=== PATIENT | male | born 1945 | race Caucasian/White ===

== ENCOUNTER 2017-12-26 10:40 | Emergency (ER) | payer OTHER, MEDICARE ==
--- NOTE | 2017-12-26 12:19 | PDOC ---
History of Present Illness - General Chief Complaint: Injury Stated Complaint: FELL, LEFT RIB PAIN Time Seen by Provider: 12/26/17 12:10 - History of Present Illness Initial Comments: 12/26/17 12:12 72yo M hx HTN, HL, R breast ca s/p mastectomy p/w L chest soreness after a fall on Saturday (4 days ago) while playing basketball with grandson. HE tripped and then FOOSHed with L hand and L chest hit the ground. No HS or LOC. Pt was at physical therapy down stairs and was told to get an XR because it hurts more when he takes a deep breath. Reports his pain is more of a soreness and feels like the muscle on the L side of his chest has stretched. Has not taken anything for pain control. Has been in his USOH with no fevers, chills, N/V/D, abd pain, focal weakness or numbness, headache, urinary sxs. Past History - Past Medical History Allergies/Adverse Reactions: Allergies Allergy/AdvReac Type Severity Reaction Status Date / Time No Known Drug Allergies Allergy Verified 07/09/15 09:26 Home Medications: Ambulatory Orders Olmesartan Medoxomil [Benicar] 20 mg PO DAILY 06/17/13 Atorvastatin Ca [Lipitor -] 20 mg PO HS 06/19/13 Cabergoline 0.25 mg PO ASDIR 06/19/13 Cancer: Yes (right breast cancer mastectomy 2012) Cardiac Disorders: (neg cardiac cath 2010) HTN: Yes Hypercholesterolemia: Yes - Surgical History Appendectomy: Yes (40 yrs ago) - Suicide/Smoking/Psychosocial Hx Smoking History: Unknown if ever smoked Have you smoked in the past 12 months: No If you are a former smoker, when did you quit?: 30 yrs ago Hx Alcohol Use: No Drug/Substance Use Hx: No Substance Use Type: Alcohol Review of Systems - Review of Systems Comments:: 12/26/17 12:17 GENERAL/CONSTITUTIONAL: No fever or chills. No weakness. HEAD, EYES, EARS, NOSE AND THROAT: No change in vision. No ear pain or discharge. No sore throat. GASTROINTESTINAL: No nausea, vomiting, diarrhea or constipation. GENITOURINARY: No dysuria, frequency, or change in urination. CARDIOVASCULAR: +chest pain, no shortness of breath. RESPIRATORY: No cough, wheezing, or hemoptysis. MUSCULOSKELETAL: No joint or muscle swelling or pain. No neck or back pain. SKIN: No rash NEUROLOGIC: No headache, vertigo, loss of consciousness, or change in strength/ sensation. ENDOCRINE: No increased thirst. No abnormal weight change. HEMATOLOGIC/LYMPHATIC: No anemia, easy bleeding, or history of blood clots. ALLERGIC/IMMUNOLOGIC: No hives or skin allergy. *Physical Exam - Physical Exam Comments: 12/26/17 12:17 GENERAL: Awake, alert, and fully oriented, in no acute distress HEAD: No signs of trauma EYES: PERRLA, EOMI, sclera anicteric, conjunctiva clear ENT: Auricles normal inspection, hearing grossly normal, nares patent, oropharynx clear without exudates. Moist mucosa NECK: Normal ROM, supple, no lymphadenopathy, JVD, or masses LUNGS: Breath sounds equal, clear to auscultation bilaterally. No wheezes, and no crackles HEART: Regular rate and rhythm, normal S1 and S2, no murmurs, rubs or gallops ABDOMEN: Soft, nontender, normoactive bowel sounds. No guarding, no rebound. No masses EXTREMITIES: Normal range of motion, no edema. No clubbing or cyanosis. No cords, erythema, or tenderness NEUROLOGICAL: Normal speech, cranial nerves intact, negative pronator drift, 5/ 5 strength in all 4 extremities, normal sensation to light touch in all 4 extremities, normal cerebellar exam, normal gait, normal reflexes and tone MSK: R mastectomy noted with scar c/d/i, +mild ttp to pinpoint area in chest 2cm superiolateral to L nipple SKIN: Warm, Dry, normal turgor, no rashes or lesions noted. ED Treatment Course - RADIOLOGY Radiology Studies Ordered: Category Date Time Status CHEST PA & LAT [RAD] Stat Radiology 12/26/17 10:49 Taken RIBS-LEFT SIDE [RAD] Stat Radiology 12/26/17 10:49 Taken Medical Decision Making - Medical Decision Making 12/26/17 12:19 72-year-old male history of hypertension, hyperlipidemia presents with left sided chest pain after a fall 4 days ago. Vitals with mildly elevated blood pressure, but otherwise unremarkable. Exam with pinpoint tenderness to palpation in the left chest. Given good mechanism for trauma with symptoms beginning only after a fall, and reproducible pain only, unlikely cardiac in nature.We'll obtain a chest x-ray and rib series to rule out bony injury or pneumothorax. Patient declines pain medication, will reassess. 12/26/17 13:16 XR negative. Pt declines pain medication. Likely Muscular strain from fall, return precautions given. Pt requests DC home. I discussed the physical exam findings, ancillary test results and final diagnoses with the patient. I answered all of the patient's questions. The patient was satisfied with the care received and felt comfortable with the discharge plan and treatment plan. The patient will call their primary care physician within 24 hours to arrange follow-up and will return to the Emergency Department with any new, persistent or worsening symptoms. *DC/Admit/Observation/Transfer Diagnosis at time of Disposition: Muscle strain of chest wall - Discharge Dispostion Disposition: HOME Condition at time of disposition: Stable Admit: No - Referrals - Patient Instructions Printed Discharge Instructions: Muscle Strain Additional Instructions: As discussed, follow-up with Dr. Joshi within 1-2 days. Return to the emergency department if you have any new, worsening or concerning symptoms. - Post Discharge Activity - Attestations Physician Attestion: 12/26/17 13:23 I, Dr. Bhupinder Velez MD, attest that this document has been prepared under my direction and personally reviewed by me in its entirety. I further attest, that it accurately reflects all work, treatment, procedures and medical decision -making performed by me.
[2017-12-26 12:21] VITALS: BP 138/53; PULSE 58; TEMP 97.7; BMI 31.6
== END 2017-12-26 13:44 | disposition home or self-care (01) ==
LOC: FER 10:40
DX: S29.011A Strain of muscle and tendon of front wall of thorax, initial encounter (principal); W18.39XA Other fall on same level, initial encounter; Y93.67 Activity, basketball; Y92.9 Unspecified place or not applicable; I10 Essential (primary) hypertension; E78.5 Hyperlipidemia, unspecified; Z85.3 Personal history of malignant neoplasm of breast
CPT/HCPCS: 71046-TC-FY; 71101-TC-FY; 99282-25

== ENCOUNTER 2018-01-02 08:04 | Day surgery (SDC) | payer OTHER, MEDICARE ==
[2017-12-31 17:03] VITALS: BMI 30.6
[2018-01-02 08:34] VITALS: TEMP 97.9
[2018-01-02] MEDS ORDERED: PROPOFOL 20 ML ONE ×2 (09:04)
[2018-01-02] MEDS ORDERED: LIDOCAINE HCL/PF 2% SDV 5ML VIAL ONE (09:05)
[2018-01-02 10:09] VITALS: BP 114/62; PULSE 59
== END 2018-01-02 10:00 | disposition home or self-care (01) ==
LOC: FASU-ENDO 08:04
PROVIDERS: ATTEND Internal Medicine Gastroenterology
PROC: 0DJD8ZZ Inspection of Lower Intestinal Tract, Via Natural or Artificial Opening Endoscopic (ICD-10-PCS; principal; 2018-01-02 09:09)
DX: Z86.010 Personal history of colon polyps (principal); K57.30 Diverticulosis of large intestine without perforation or abscess without bleeding

== ENCOUNTER 2019-08-26 11:10 | Day surgery (SDC) | payer OTHER, MEDICARE ==
[2019-08-24 10:09] VITALS: BMI 29.9
[2019-08-26] MEDS ORDERED: PROPOFOL 20 ML ONE ×2 (12:50)
[2019-08-26 13:57] VITALS: BP 140/71; PULSE 54; TEMP 97.6
== END 2019-08-26 14:00 | disposition home or self-care (01) ==
LOC: FASU-ENDO 11:10
PROVIDERS: ATTEND Internal Medicine Gastroenterology
PROC: 0DJD8ZZ Inspection of Lower Intestinal Tract, Via Natural or Artificial Opening Endoscopic (ICD-10-PCS; principal; 2019-08-26 13:04)
DX: K92.1 Melena (principal); K57.30 Diverticulosis of large intestine without perforation or abscess without bleeding; K64.0 First degree hemorrhoids

== ENCOUNTER 2019-10-29 08:56 | Emergency (ER) | payer OTHER, MEDICARE ==
[2019-10-29 09:16] VITALS: BP 149/95; PULSE 62; TEMP 98; BMI 29.9
--- NOTE | 2019-10-29 09:18 | PDOC ---
History of Present Illness - General Chief Complaint: Pain Stated Complaint: RIGHT KNEE PAIN Time Seen by Provider: 10/29/19 09:04 History Source: Patient Exam Limitations: No Limitations - History of Present Illness Initial Comments: 10/29/19 09:16 74 y/o male with right knee pain and swelling for a while.. Pt is active, but denies trauma or fall. Not taking anything for the pain. No fever or chills. PMD advised patient to come to ER for x-ray. Most pain to medical aspect of right knee. 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 "WATCHING IT") Cardiac Disorders: No (neg cardiac cath 2010) CVA: No COPD: No CHF: No Dementia: No Diabetes: No GI Disorders: No Disorders: Yes (09/2017-) HTN: Yes Hypercholesterolemia: Yes Liver Disease: No Seizures: No Thyroid Disease: No - Surgical History Abdominal Surgery: No Appendectomy: Yes (40 yrs ago) Cardiac Surgery: No Cholecystectomy: No Lung Surgery: No Neurologic Surgery: No Orthopedic Surgery: No - Psycho Social/Smoking Cessation Hx Smoking History: Never smoked Have you smoked in the past 12 months: No If you are a former smoker, when did you quit?: 30 yrs ago Information on smoking cessation initiated: No Hx Alcohol Use: Yes (RARWE) Drug/Substance Use Hx: No Substance Use Type: Alcohol Hx Substance Use Treatment: No Review of Systems - Review of Systems Able to Perform ROS?: Yes Is the patient limited Bhutanese proficient: No Constitutional: No: Chills, Fever Respiratory: No: Cough, Shortness of Breath Cardiac (ROS): No: Edema Musculoskeletal: Yes: Joint Pain, Joint Swelling. No: Muscle Pain Integumentary: No: Bruising Neurological: No: Numbness, Paresthesia All Other Systems: Reviewed and Negative *Physical Exam - Vital Signs Last Vital Signs Temp Pulse Resp BP Pulse Ox 98 F 62 16 149/95 99 10/29/19 09:01 10/29/19 09:01 10/29/19 09:01 10/29/19 09:01 10/29/19 09:01 - Physical Exam General Appearance: Yes: Nourished, Appropriately Dressed. No: Apparent Distress HEENT: positive: EOMI, ANDERSON, Normal ENT Inspection, Normal Voice Neck: positive: Trachea midline, Normal Thyroid, Supple. negative: Tender, Rigid Respiratory/Chest: positive: Lungs Clear, Normal Breath Sounds. negative: Chest Tender, Respiratory Distress Cardiovascular: positive: Regular Rhythm, Regular Rate, S1, S2. negative: Edema , JVD, Murmur Vascular Pulses: Femoral (R): 4+, Femoral (L): 4+, Carotid (R): 4+, Carotid (L) : 4+, Dorsalis-Pedis (R): 4+, Doralis-Pedis (L): 4+ Gastrointestinal/Abdominal: positive: Normal Bowel Sounds, Flat, Soft. negative : Tender Lymphatic: negative: Adenopathy, Tenderness, Other Musculoskeletal: positive: Normal Inspection. negative: CVA Tenderness Extremity: positive: Normal Capillary Refill. negative: Normal Inspection ( right knee swollen, no ecchymosis or erythema, no warmth or septic joint, full ROM, neg valgus/avrus maneuvers, neg Aurelia test), Calf Tenderness (neg calf tenderness b/l) Integumentary: positive: Normal Color, Dry, Warm Neurologic: positive: ventilator specialist II-XII NML intact, Fully Oriented, Alert, Normal Mood/ Affect, Normal Response, Motor Strength 5/5 ED Treatment Course - ADDITIONAL ORDERS Additional order review: 10/29/19 09:19 right knee pain, most likely meniscus, will need MRI and Ortho referral Will obtain x-ray, ambulates without difficulty 10/29/19 09:38 X-ray right knee: no fracture seen Discharge - Discharge Information Problems reviewed: Yes Clinical Impression/Diagnosis: Knee pain, right Qualifiers: Chronicity: chronic Qualified Code(s): M25.561 - Pain in right knee; G89.29 - Other chronic pain Condition: Stable Disposition: HOME - Admission No - Follow up/Referral Referrals: Eric Dejesus MD [Staff Physician] - - Patient Discharge Instructions Patient Printed Discharge Instructions: DI for Knee Pain Additional Instructions: Ice, Tylenol, rest Orthopedic follow up MRI as out patient to r/o meniscal tear If worsen return to ER - Post Discharge Activity
== END 2019-10-29 09:45 | disposition home or self-care (01) ==
LOC: FER 08:56
DX: M25.561 Pain in right knee (principal); G89.29 Other chronic pain; Z87.891 Personal history of nicotine dependence; I10 Essential (primary) hypertension; E78.00 Pure hypercholesterolemia, unspecified; Z85.3 Personal history of malignant neoplasm of breast
CPT/HCPCS: 73560-TC-RT-FY; 99282-25

== ENCOUNTER 2021-06-25 10:52 | Observation (INO) | payer OTHER, MEDICARE ==
[2021-06-25] MEDS ORDERED: MECLIZINE HCL 25 MG TABLET (FP) PO ONE (12:25)
[2021-06-25] MEDS ORDERED: SODIUM CHLORIDE 0.9% 1000 ML INFUS.BAG IV ONE (12:25)
[2021-06-25] MEDS ORDERED: LORazepam 2 MG/ML SDV VIAL IVPUSH ONE (12:25)
[2021-06-25] MEDS ORDERED: MECLIZINE HCL 25 MG TABLET (FP) ONE (12:33)
[2021-06-25] MEDS ORDERED: LORazepam 2 MG/ML SDV VIAL ONE (12:33)
[2021-06-25 13:13] LABS: BASO % 1.8 % (0-2.0); EOS % 0.8 % (0-4.5); HEMATOCRIT 46.7 % (35.4-49); HEMOGLOBIN 15.3 GM/dl (11.7-16.9); LYMPH % 29.6 % (8-40); MCH 29.6 pg (25.7-33.7); MCHC 32.8 g/dl (32.0-35.9); MEAN CELL VOLUME 90.5 fl (80-96); MONO % 10.8 % (3.8-10.2); PLATELET COUNT 164 10^3/uL (134-434); RBC 5.16 M/mm3 (4.00-5.60); RDW 13.6 % (11.9-15.9); WHITE BLOOD COUNT 5.8 K/mm3 (4.0-10.8)
[2021-06-25 13:19] LABS: ALBUMIN 3.9 g/dl (3.4-5.0); BILIRUBIN,TOTAL 0.9 mg/dl (0.2-1); CALCIUM 9.1 mg/dl (8.5-10); CREATININE 1.2 mg/dl (0.55-1.3)
[2021-06-25 21:18] VITALS: BMI 31.2
[2021-06-25] MEDS: APIXABAN 5 MG TABLET PO SCH (21:29)
[2021-06-25] MEDS: LOSARTAN POTASSIUM 25 MG TABLET PO SCH (21:29)
[2021-06-25] MEDS ORDERED: ATORVASTATIN CA 20 MG TABLET (FP) PO SCH (22:00)
[2021-06-26] MEDS ORDERED: LORazepam 2 MG/ML SDV VIAL IVPUSH ONE (02:38)
[2021-06-26 07:38] LABS: BASO % 1.9 % (0-2.0); EOS % 2.1 % (0-4.5); HEMATOCRIT 44.5 % (35.4-49); HEMOGLOBIN 14.9 GM/dl (11.7-16.9); LYMPH % 28.1 % (8-40); MCH 30.1 pg (25.7-33.7); MCHC 33.5 g/dl (32.0-35.9); MEAN CELL VOLUME 89.9 fl (80-96); MEAN PLT VOLUME 8.6 fl (7.5-11.1); MONO % 12.7 % (3.8-10.2); NEUT % 55.2 % (42.8-82.8); PLATELET COUNT 165 10^3/uL (134-434); RBC 4.96 M/mm3 (4.00-5.60); WHITE BLOOD COUNT 5.8 K/mm3 (4.0-10.8)
[2021-06-26 07:56] LABS: CALCIUM 8.7 mg/dl (8.5-10); CREATININE 1.1 mg/dl (0.55-1.3); MAGNESIUM 1.9 mg/dL (1.8-2.4)
[2021-06-26 08:07] LABS: ACTIVATED PTT 30.4 SECONDS (25.2-36.5)
[2021-06-26 08:11] LABS: INR 1.35 (0.82-1.09); PROTHROMBIN TIME (PATIENT) 15.1 SEC (10.2-13.0)
[2021-06-26] MEDS ORDERED: LORazepam 2 MG/ML SDV VIAL ONE (10:02)
[2021-06-26 11:22] VITALS: BP 152/73; PULSE 48; TEMP 87.8
[2021-06-26] MEDS: LOSARTAN POTASSIUM 25 MG TABLET PO SCH (11:24)
[2021-06-26] MEDS: APIXABAN 5 MG TABLET PO SCH (11:24)
[2021-06-26] MEDS ORDERED: APIXABAN 5 MG TABLET PO SCH (22:00)
== END 2021-06-26 13:38 | disposition home or self-care (01) ==
LOC: FER 10:52 → FM/S 16:42 → UNDODISOB 06-26 12:08
PROVIDERS: ADMIT Internal Medicine; ATTEND Nurse Practitioner Acute Care
PROC: 3E033NZ Introduction of Analgesics, Hypnotics, Sedatives into Peripheral Vein, Percutaneous Approach (ICD-10-PCS; principal; 2021-06-25)
PROC: 3E0337Z Introduction of Electrolytic and Water Balance Substance into Peripheral Vein, Percutaneous Approach (ICD-10-PCS; 2021-06-25)
DX: H93.13 Tinnitus, bilateral (principal); F40.240 Claustrophobia; E87.8 Other disorders of electrolyte and fluid balance, not elsewhere classified; I48.91 Unspecified atrial fibrillation; E78.5 Hyperlipidemia, unspecified; H61.20 Impacted cerumen, unspecified ear; R42 Dizziness and giddiness; I10 Essential (primary) hypertension; Z85.46 Personal history of malignant neoplasm of prostate; Z87.891 Personal history of nicotine dependence; Z85.3 Personal history of malignant neoplasm of breast; E66.9 Obesity, unspecified; Z68.31 Body mass index [BMI] 31.0-31.9, adult; Z86.79 Personal history of other diseases of the circulatory system; Z29.9 Encounter for prophylactic measures, unspecified; Z79.01 Long term (current) use of anticoagulants; R11.0 Nausea
CPT/HCPCS: 36415; 70450-TC; 70551-TC; 80048; 80053; 83735; 85025; 85610; 85730; 93005; 96361; 96374; 96376; 97116-GP; 97161-GP; 99285-25; C9803; G0378; U0003; U0005

== ENCOUNTER 2022-02-04 14:19 | Emergency (ER) | payer OTHER, MEDICARE ==
[2022-02-04] MEDS ORDERED: KETOROLAC TROMETHAMINE 30 MG/1 ML VIAL IM ONE (14:35)
[2022-02-04] MEDS ORDERED: KETOROLAC TROMETHAMINE 30 MG/1 ML VIAL ONE (14:48)
[2022-02-04 14:53] VITALS: BP 139/66; PULSE 59; TEMP 98.9; BMI 30.6
[2022-02-04 15:36] LABS: EPITHELIAL CELLS RARE /hpf
[2022-02-04] MEDS ORDERED: CYCLOBENZAPRINE HCL 10 MG TABLET (FP) PO ONE (17:44)
[2022-02-04] MEDS ORDERED: CYCLOBENZAPRINE HCL 5 MG TABLET ONE (17:47)
== END 2022-02-04 17:54 | disposition home or self-care (01) ==
LOC: FER 14:19
PROC: 3E023GC Introduction of Other Therapeutic Substance into Muscle, Percutaneous Approach (ICD-10-PCS; principal; 2022-02-04)
DX: S39.012A Strain of muscle, fascia and tendon of lower back, initial encounter (principal); R31.9 Hematuria, unspecified; Y99.8 Other external cause status
CPT/HCPCS: 74176-TC; 81003; 81015; 99284-25